=== PATIENT | female | born 1965 | race Caucasian/White ===

== ENCOUNTER 2019-08-30 10:24 | Outpatient (CLI) | payer BC, SELFPAY ==
--- NOTE | ~2019-08-30 | US_ITS ---
EXAMINATION:US venous doppler LE RT INDICATION:Right lower extremity pain TECHNIQUE: Multiple grayscale, color flow and Doppler images of the right lower extremity deep venous systems were obtained and reviewed. COMPARISON:No prior studies for comparison. FINDINGS: The common femoral, superficial femoral and popliteal veins demonstrate normal respiratory variation, augmentation and compressibility. Color flow is also seen within the posterior tibial, pe roneal, greater saphenous and profunda veins. IMPRESSION: 1: No lower extremity deep venous thrombosis. Reviewed, dictated and finalized at location B. 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
== END 2019-08-30 10:25 | disposition home or self-care (01) ==
PROVIDERS: PCP Internal Medicine; Visit Provider Physician Assistant
DX: M79.661 Pain in right lower leg (principal)
CPT/HCPCS: 93971

== ENCOUNTER 2021-05-27 10:21 | Outpatient (CLI) | payer BC, SELFPAY ==
--- NOTE | 2021-05-27 11:00 | NEURO_ITS ---
Impression: # Complains of numbness of feet. # Poor left peroneal responses. # Distal neuropathy. # Needle/EMG exam neurogenic in bilateral EDB, left more than right. Nerve Conduction Studies Anti Sensory Summary Table Stim Site NR Peak (ms) P-T Amp (?V) Site1 Site2 Delta-P (ms) Dist (cm) Masood (m/s) Left Sup Fibular Anti Sensory (Ant Lat Mall) 14 cm 3.7 22.9 14 cm Ant Lat Mall 3.7 16.0 43 Right Sup Fibular Anti Sensory (Ant Lat Mall) 14 cm 3.6 10.1 14 cm Ant Lat Mall 3.6 16.0 44 Left Sural Anti Sensory (Lat Mall) Calf 3.8 3.7 Calf Lat Mall 3.8 16.0 42 Right Sural Anti Sensory (Lat Mall) Calf 3.9 7.3 Calf Lat Mall 3.9 16.0 41 Motor Summary Table Stim Site NR Onset (ms) O-P Amp (mV) Site1 Site2 Delta-0 (ms) Dist (cm) Masood (m/s) Left Peroneal Motor (Vastus Med) NO RESPONSE Ankle NR Popit Ankle 0.0 Popit NR Right Peroneal Motor (Vastus Med) Ankle 5.7 0.6 Popit Ankle 7.4 38.0 51 Popit 13.1 0.7 Left Tibial Motor (Abd Nunez Brev) Ankle 5.1 7.6 Knee Ankle 9.8 42.0 43 Knee 14.9 4.1 Right Tibial Motor (Abd Nunez Brev) Ankle 5.1 4.7 Knee Ankle 9.0 42.0 47 Knee 14.1 1.3 F Wave Studies NR F-Lat (ms) L-R F-Lat (ms) Left Peroneal (Mrkrs) (EDB) 54.04 1.17 Right Peroneal (Mrkrs) (EDB) 52.87 1.17 Left Tibial (Mrkrs) (Abd Hallucis) 54.97 0.39 Right Tibial (Mrkrs) (Abd Hallucis) 54.58 0.39 EMG Side Muscle Nerve Root Ins Act Fibs Amp Dur Recrt Comment Right AntTibialis Dp Br Fibular L4-5 Nml Nml Nml Nml Nml Right Gastroc Tibial S1-2 Nml Nml Nml Nml Nml Right Fibularis Long Sup Br Fibular L5-S1 Nml Nml Nml Nml Nml Right Flex Dig Long Tibial L5-S2 Nml Nml Nml Nml Nml Right Ext Dig Brev Dp Br Fibular L5, S1 Nml Nml Incr >12ms Reduced Left AntTibialis Dp Br Fibular L4-5 Nml Nml Nml Nml Nml Left Gastroc Tibial S1-2 Nml Nml Nml Nml Nml Left Fibularis Long Sup Br Fibular L5-S1 Nml Nml Nml Nml Nml Left Flex Dig Long Tibial L5-S2 Nml Nml Nml Nml Nml Left Ext Dig Brev Dp Br Fibular L5, S1 Nml Nml Incr >12ms Reduced MTDD
== END 2021-05-27 10:22 | disposition home or self-care (01) ==
LOC: ANHNEURO 10:27
PROVIDERS: PCP Physician Assistant; Visit Provider Physician Assistant
DX: G62.9 Polyneuropathy, unspecified (principal)
CPT/HCPCS: 95886; 95910

== ENCOUNTER 2022-03-04 07:59 | Outpatient (CLI) | payer BC, SELFPAY ==
--- NOTE | ~2022-03-04 | NM_ITS ---
EXAMINATION: NM carolyn stress w perfusion DATE: 03/04/2022 10:57 INDICATION: Dyspnea on exertion. TECHNIQUE: Rest images were obtained following intravenous administration of 8.7 mCi Tc99m tetrofosmi n (Myoview). The patient was infused intravenously with Lexiscan (regadenoson). Then, 28.2 mCi Tc99m tetrofosmin (Myoview) was administered intravenously, and stress images were obtained. Data was recon structed into short axis and horizontal and vertical long axis SPECT images. Gated SPECT images were also obtained. COMPARISON: None. FINDINGS: There is no definite reversible or fixed perfusion abnormality to suggest ischemia or infar ction. There is no segmental wall motion abnormality. Left ventricular ejection fraction measures > 70%. IMPRESSION: 1. No definite ischemia or infarct. 2. Normal left ventricular ejection fraction measuring >70%. Reviewed, dictated and finalized at location A.
--- NOTE | 2022-03-04 08:20 | EST_ITS ---
Patient Info Name: Brennen Quiñonez Age: 57 years : 1965 Gender: Female Ht: 67 in Wt: 172 lbs BSA: 1.94 m2 Exam Date: 03/04/2022 9:48 AM Exam Location: [facility] Stress Patient Status: Outpatient Admit Date: 03/04/2022 Staff Ordering Physician: Angel Newman PA-C Attending Provider: Angel Newman PA-C Exercise Technologist: Linda Thompson RDCS Exercise Physician: Noah Armijo DO Exam Type: CA stress carolyn w NM Study Info Indications R06.09 - Other forms of dyspnea A regadenoson stress test was performed. Summary 1. 1. Negative lexiscan stress test for ischemic ST changes by ECG criteria. 2. 2. Stable hemodynamics throughout the test. 3. 3. Nuclear scan to follow and will be reported separately. Please correlate with it. 4. 4. Patient informed of the above results. Protocol: Lexiscan Stress ECG Details Stage: REST Duration (min): 0 min : 49 sec HR (bpm): 65 SBP (mmHg): 117 DBP (mmHg): 73 Stage: REST Duration (min): 8 min : 56 sec HR (bpm): 62 SBP (mmHg): 117 DBP (mmHg): 73 Stage: STAGE 1 Duration (min): 1 min : 0 sec HR (bpm): 97 SBP (mmHg): 141 DBP (mmHg): 82 Stage: RECOVERY Duration (min): 1 min : 0 sec HR (bpm): 107 SBP (mmHg): 144 DBP (mmHg): 75 Stage: RECOVERY Duration (min): 2 min : 0 sec HR (bpm): 105 SBP (mmHg): 144 DBP (mmHg): 75 Stage: RECOVERY Duration (min): 3 min : 0 sec HR (bpm): 96 SBP (mmHg): 141 DBP (mmHg): 77 Stage: RECOVERY Duration (min): 4 min : 0 sec HR (bpm): 92 SBP (mmHg): 141 DBP (mmHg): 77 Stage: RECOVERY Duration (min): 5 min : 0 sec HR (bpm): 85 SBP (mmHg): 143 DBP (mmHg): 79 Stage: RECOVERY Duration (min): 5 min : 11 sec HR (bpm): 87 SBP (mmHg): 143 DBP (mmHg): 79 Rest HR: 62 bpm Peak HR: 108 bpm Rest Sys BP: 117 mmHg Peak Sys BP: 144 mmHg Max Pred HR: 164 bpm % Max Pred HR: 66 % Target HR: 139 bpm Max RPP: 15,552 bpm*mmHg Termination Reason: Completed protocol Cardiac Symptoms: SOB, Headache, stomach discomfort Total Time: 1 min : 0 sec Rest Ruiz BP: 73 mmHg Peak Ruiz BP: 75 mmHg Total Dose: 0.4 mg Resting ECG Sinus rhythm, cannot r/o septal infarct, age indeterminate. Stress ECG No ST changes. Arrhythmias None. Report Signatures
== END 2022-03-04 08:00 | disposition home or self-care (01) ==
PROVIDERS: PCP Physician Assistant; Visit Provider Physician Assistant
DX: R06.02 Shortness of breath (principal)
CPT/HCPCS: 78452; 93017; A9502; J2785

== ENCOUNTER → 2022-08-03 15:47 | Outpatient (CLI) | payer BC, SELFPAY ==
--- NOTE | ~2022-08-03 | DEXA_ITS ---
Bone Density Report Name: GLORY CASTRO Age: 57 Sex: Female Ethnicity: White Date of : 1965 Indication: postmenopausal; screening for osteoporosis; prior fracture; Referring Provider: Angel Newman Study: Bone densitometry was performed. Exam Date: August 03, 2022 Accession number: [id number] Bone Density: Region BMD T-score Z-score Classification AP Spine (L1-L4) 1.099 0.5 1.6 Normal Femoral Neck (Left) 0.692 -1.4 -0.3 Osteopenia Total Hip (Left) 0.921 -0.2 0.6 Normal Femoral Neck (Right) 0.665 -1.7 -0.5 Osteopenia Total Hip (Right) 0.901 -0.3 0.4 Normal Total Hip Mean 0.911 -0.3 0.5 Normal World Health Organization criteria for BMD impression classify patients as: Normal (T-score at or above -1.0), Osteopenia (T-score between -1.0 and -2.5), or Osteoporosis (T-score at or below -2.5). 10-year Fracture Risk(1): Major Osteoporotic Fracture 13% Hip Fracture 1.2% Reported Risk Factors: [place] (), Neck BMD=0.665, BMI=28.8, previous fracture (1) FRAX(R) Version 3.08. Fracture probability calculated for an untreated patient. Fracture probability may be lower if the patient has received treatment. Clinical Information Provided by Patient: Has had a low trauma fracture Has used the following medications: Calcium Patient maximum height was 67.5 Menopause Age: 44 No regular weight bearing exercise Drinks caffeinated beverages Onset of menses at age 13 Number of children 2 Impression: The patient has low bone mass, based on the Right Femoral Neck T-score. The patient has an estimated ten-year risk of hip fracture of 1.2% and an estimated ten-year risk of major fracture of 13%, based on the WHO FRAX algorithm. The patient has risk factors, including: previous fracture. Discussion: BONE DENSITY IS LOW AT ONE OR MORE SKELETAL SITES. This patient's lowest T-score is low at one or more skeletal sites. It meets the World Health Organization's (WHO) criteria for ?low bone mass? (T-score between -1.0 and -2.5). The patient's 10-year risk of fracture as calculated by FRAX is less than the threshold where pharmacological therapy is recommended by the National Osteoporosis Foundation (NOF). However, all treatment decisions require clinical judgment and consideration of individual patient factors, including patient preferences, comorbidities, previous drug use, risk factors not captured in the FRAX model (e.g., frailty, falls, vitamin D deficiency, increased bone turnover, interval significant decline in bone density) and possible under or overestimation of fracture risk by FRAX. The patient should follow a healthful lifestyle (good nutrition with adequate calcium and vitamin D, and appropriate weight-bearing exercise). Follow-Up: Consider repeating this study in 2 to 3 years to re
== END ==
PROVIDERS: PCP Internal Medicine; Visit Provider Physician Assistant
DX: Z78.0 Asymptomatic menopausal state (principal); M85.852 Other specified disorders of bone density and structure, left thigh; M85.851 Other specified disorders of bone density and structure, right thigh
CPT/HCPCS: 77080

== ENCOUNTER 2024-05-22 12:44 | Outpatient (CLI) | payer BC, SELFPAY ==
--- NOTE | ~2024-05-22 | MR_ITS ---
EXAMINATION: MR hip RT wo con DATE: 05/22/2024 13:40 INDICATION: Right hip pain TECHNIQUE: Magnetic resonance imaging (MRI) of the right hip was performed without intravenous contr ast. Sequences included full-field axial PD-weighted FS FSE and T1-weighted FSE, coronal of the pelvi s with PD-weighted FS FSE, T2-weighted FSE and T1-weighted FSE, small field of view of the right hip with axial PD-weighted FS FSE, sagittal PD-weighted FS FSE, coronal PD-weighted FS FSE and coronal T2 weighted FSE. Additional radial T1-weighted FGR oriented orthogonal to the acetabular rim were obt ained for evaluation of the labrum. COMPARISON: Right hip radiographs dated 04/29/2024 FINDINGS: Bones/labrum/cartilage: Alignment is normal. No fracture, avascular necrosis or pathologic marrow replacing process. There i s a tear extending for 1.3 cm AP along the the 1:00-12:00 position of the anterosuperior right acetab ular labrum. Minimal osteoarthritis at the right hip. Fluid: Symmetric physiologic amount of fluid within both hip joints. Soft tissues: Normal and symmetric muscle bulk and signal in the pelvis and visualized proximal thighs. The iliopso as, gluteal and proximal hamstring tendons are normal. Bilateral 2.8 cm ovarian cysts with multiple a dditional subcentimeter cysts at both ovaries which can be seen in the setting of polycystic ovarian disease. There are also multiple nabothian cysts versus tunnel cluster at the cervix. Limited evaluat ion of visceral organs of the pelvis is otherwise unremarkable. No pathologically enlarged pelvic/in guinal lymphadenopathy. IMPRESSION: 1. Minimal right hip osteoarthritis with tear at the anterosuperior right acetabular labrum. 2. Numerous small bilateral ovarian cysts which could be seen in the setting of polycystic ovarian di sease. Reviewed, dictated and finalized at location A. NURSE IMPRESSION: 1. Minimal right hip osteoarthritis with tear at the anterosuperior right aceta bular labrum. 2. Numerous small bilateral ovarian cysts which could be seen in the setting of polycystic ovarian disease.
== END 2024-05-22 12:45 | disposition home or self-care (01) ==
LOC: MICIMG 12:47
PROVIDERS: PCP Physician Assistant; Visit Provider Orthopaedic Surgery
DX: M16.11 Unilateral primary osteoarthritis, right hip (principal); S43.431A Superior glenoid labrum lesion of right shoulder, initial encounter; X58.XXXA Exposure to other specified factors, initial encounter; N83.292 Other ovarian cyst, left side; N83.291 Other ovarian cyst, right side
CPT/HCPCS: 73721

== ENCOUNTER 2024-12-12 14:14 | Outpatient (CLI) | payer BC, SELFPAY ==
--- OUTSIDE RECORDS SUMMARY | 2024-12-12 14:29 | XMS_ITS | Clinical Summary ---
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 This disclosure is being madepursuant to the Care Everywhere program and may not contain all information available regarding this patient. Last updated 18.[facility] [employer] Allergies Active Allergy Reactions Criticality Noted Date Comments Keflex Other Low 04/20/2010 Yeast infection. Doesn't want ever take., Yeast infection. Doesn't want ever take., Yeast infection. Doesn't want ever take. Morphine Sulfate Nausea and/or Vomiting Low 010 Penicillins Skin Reactions,Swelling Medium 04/20/2010 Other reaction(s): Hives Swollen hives. Swollen hives., Swollen hives., Swollen hives. Medications * Be aware that medications may not be up to date on this document. Alwaysverify current medications with the patient. zolpidem (AMBIEN) 10 MG tablet 0 09/23/19 18 Active valACYclovir (VALTREX) 1 GM tablet 0 08/31/19 18 Active traMADol (ULTRAM) 50 MG tablet 0 08/04/19 18 Active spironolactone (ALDACTONE) 50 MG tablet 1 08/04/19 18 Active pantoprazole EC (PROTONIX) 40 MG tablet 3 09/13/19 18 Active omeprazole (PRILOSEC) 20 MG capsule 08/10/19 16 Active jannz-3-yevr ethyl esters (LOVAZA) 1 G capsule Take 1 tablet by mouth once daily 08/15/19 15 Active erythromycin base (E-MYCIN) 500 MG tablet 07/21/19 16 Active cyclobenzaprine (FLEXERIL) 10 MG tablet 0 08/31/19 18 Active cyanocobalamin (VITAMIN B-12) 100 MCG tablet Take 100 mcg by mouth once daily Active Calcium Carbonate (CALCIUM 600 PO) Take 1,200 mg by mouth Active ALPRAZolam (XANAX) 0.5 MG tablet 0.5 mg as needed 06/05/20 14 Active fenofibrate (LOFIBRA) 160 MG tabletIndications: Mixed hyperlipidemia Take 1 tablet by mouth once daily 90 tablet 4 12/02/19 20 Active rosuvastatin (CRESTOR) 5 MG tablet Take 5 mg by mouth once daily 02/24/20 20 Active OZEMPIC, 0.25 OR 0.5 MG/DOSE, 2 MG/1.5ML pen 11/26/19 20 Active SYNTHROID 175 MCG tabletIndications: Hypothyroidism Take 1 tablet by mouth daily before breakfast Reasons: Underactive Thyroid 90 tablet 3 05/11/20 20 Active metFORMIN (GLUCOPHAGE) 1000 MG tablet TAKE 1 TABLET BY MOUTH TWICE A DAY WITH MEALS 180 tablet 3 02/02/20 21 Active Active Problems Problem Noted Date Diagnosed Date Benign paroxysmal vertigo of right ear 7 BPV (benign positional vertigo), right 7 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 Defuse. Immunizations Immunization Administration Dates Next Due INFLUENZA VACCINE, TRIV. (AF LURIA, FLUZONE TRIVALENT; 6MO+) (IIV3) 03/26/2013 Family History Medical History Relation Name Comments Diabetes Brother CAD (Coronary Artery Disease) Father Diabetes Father Heart Disease Father High Cholesterol Father Cancer Maternal Grandfather Hypertension Maternal Grandfather Cancer Maternal Grandmother Hypertension Maternal Grandmother Diabetes Mother Thyroid Disease Mother Cancer Paternal Aunt Diabetes Paternal Uncle 1 CAD (Coronary Artery Disease) Paternal Uncle 2 Heart Disease Paternal Uncle 3 Cancer Sister breast cancer Asthma Neg Hx CVA Neg Hx Kidney Disease Neg Hx Migraine Neg Hx Osteoporosis Neg Hx Seizures Neg Hx Relation Name Status Comments Brother Father Maternal Grandfather Maternal Grandmother Mother Paternal Aunt Paternal Uncle 1 Paternal Uncle 2 Paternal Uncle 3 Sister Social History Tobacco Use Types Packs/Day Years Used Date Smoking Tobacco: Former Cigarettes Q uit: 06/26/2000 Smokeless Tobacco: Never Alcohol Use Standard Drinks/Week Comments Yes 0 (1 standard drink = 0.6 oz pur e alcohol) Comments No Sex and Gender Information Value Date Recorded Sex Assigned at Not on file 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 Gender Identity Not on file Sexual Orientation Not on file Last Filed Vital Signs Vital Sign Reading Time Taken Comments Blood Pressure 134/86 12/02/2019 11:04 AM CDT Pulse 76 12/02/2019 11:04 AM CDT Temperature 36.8 C (98.3 F) 12/02/2019 11:04 AM CDT Respiratory Rate 17 12/02/2019 11:0 4 AM CDT Oxygen Saturation 96% 12/02/2019 11: 04 AM CDT Inhaled Oxygen Concentration - - Weight 80.7 kg (177 lb 14.4 oz) 020 11:04 AM CDT Height 171.5 cm (5' 7.5) 12/02/2019 11 :04 AM CDT Body Mass Index 27.45 12/02/2019 11:04 AM CDT Plan of Treatment Health Maintenance Due Date Last Done Comments COLOGUARD (AGES 45-75) - COL ON CA SCREENING 1965 COLON MONITORING 1965 COLONOSCOPY - COLON CA SCREENING 1966 CT COLONOGRAPHY - COLON CA SCREENING 1965 Colorectal Cancer Screening 1965 FIT - COLON CA SCREENING 1965 FLEX SIG - COLON CA SCREENING 1965 MAMMOGRAM 1965 HIV SCREENING 1981 HEPATITIS C SCREENING 01/11/1984 DTAP/TDAP/TD VACCINES (1 - Tdap) 1985 HEPATITIS B VACCINE (1 of 3 - 19+ 3-dose series) 1985 PAP SMEAR 1987 PNEUMOCOCCAL VACCINE 50+ (1 of 1 - PCV) 01/16/2016 ZOSTER VACCINE (1 of 2) 01/16/2016 COVID-19 VACCINE (1 - 2023-2 5 season) 2024 DEPRESSION SCREENING 06/26/2024 INFLUENZA VACCINE (Season Ended) 2025 03/26/20 13 HIB VACCINE Aged Out No longer eligi ble based on patient's age to complete this topic HPV VACCINE Aged Out No longer eligi ble based on patient's age to complete this topic MENINGOCOCCAL (Group B) VACC INE SHARED DECISION-MAKING Aged Out No longer eligibl e based on patient's age to complete this topic MENINGOCOCCAL GROUPS A/C/Y/W VACCINE Aged Out No longer eligible b ased on patient's age to complete this topic Insurance Care Teams 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
--- OUTSIDE RECORDS SUMMARY | 2024-12-12 14:29 | XMS_ITS | Encounter Summary ---
Author Organization [facility] Address 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 Role Phone Unavailable Primary Care Provider Unavailabl e Encounter Details Date Type Department Care Team (Late st Contact Info) Description 12/10/2024 External Device Data [facility] ABSTRACTION Provider, Abstract NO ADDRESS ON FILE Social History Tobacco Use Types Packs/Day Years Used Date Smoking Tobacco: Never Assessed Comments Unknown Sex and Gender Information Value Date Recorded Sex Assigned at Not on file Legal Sex Female 12:14 PM CDT Gender Identity Not on file Sexual Orientation Not on file documented as of this encounter Plan of Treatment Not on file documented as of this encounter Visit Diagnoses Not on filedocumented in this encounter
--- OUTSIDE RECORDS SUMMARY | 2024-12-12 14:29 | XMS_ITS | Clinical Summary ---
Author Organization [facility] al Address [address] [place] [address] Care Team Providers Care Certified Nursing Assistant Instructor Name Role Phone hTais Patten MD Unavailable [phone] Savage Salinas DO Primary Care Provider [phone] Allergies Active Allergy Reactions Criticality Noted Date Comments Cephalexin Other (See comments) Low 04/20/2010 Yeast infection. Doesn't want ever take. Morphine Nausea only,Vomiting Low Morphine Sulfate Nausea And Vomiting Low 04/20/2010 Penicillins Swelling,Rash Medium 04/20/2010 Medications LORazepam (ATIVAN) 0.5 mg tablet Take 0.5 mg by mouth every 8 (eight) hours as needed for anxiety 0 Active traMADoL (ULTRAM) 50 mg tablet Take 50 mg by mouth every 6 (six) hours as needed for pain 0 Active zolpidem (AMBIEN) 10 mg tablet Take 10 mg by mouth nightly as needed for sleep 0 Active omeprazole (PriLOSEC) 10 mg capsuleIndication s:Treatment of Non-Bleeding Gastric Disorder Take 10 mg by mouth daily before breakfast Active valACYclovir (VALTREX) 1 gram tabletIndications :Skin/Soft Tissue Infection Take 1,000 mg by mouth as needed 0 Active spironolactone (ALDACTONE) 100 mg tablet 1 Active Synthroid 125 mcg tablet Take 1 tablet (125 mcg total) by mouth daily 30 tablet 11 2 Active pravastatin (PRAVACHOL) 20 mg tablet Take 1 tablet (20 mg total) by mouth daily 3 Active pravastatin (PRAVACHOL) 40 mg tablet Take 1 tablet (40 mg total) by mouth daily 4 Active Ozempic 2 mg/dose (8 mg/3 mL) pen injector injection INJECT 2 MG UNDER THE SKIN ONCE WEEKLY 4 Active metFORMIN XR (GLUCOPHAGE XR) 500 mg 24 hr tablet Take 1 tablet (500 mg total) by mouth daily 4 Active estrogens, conjugated, (Premarin) vaginal creamIndications: dyspareunia due to menopausal vulvovaginal atrophy Insert 0.5 grams vaginally twice a week. 30 g 1 5 Active Active Problems Problem Noted Date Diagnosed Date Vaginal dryness, menopausal 08/30/2024 Type 2 diabetes mellitus wit hout complication, without long-term current use of insulin 07/06/2021 Assessment & Plan (07/06/2021 10:50 AM COMMUNITY RELATIONS LIAISON): Control : no recent labs available A1c was 6.6% on 12/03/19 Kidney: normal GFR 72 on 12/10/20 Neuropathy : responding to Gabapentin Eye : needs exam Plan: Continue diet plan Continue 2000 mg of Metformin /day Check labs in 4 weeks. Ophthalmology exam on regular basis. Arthritis of carpometacarpal (CMC) joint of both thumbs 03/27/2020 Overview (03/27/2020): Added automatically from request for surgery [id number] Subcutaneous mass of left thumb 03/27/2020 Overview (03/27/2020): Added automatically from request for surgery [id number] Neuroma of foot 05/11/2017 BPV (benign positional vertigo), right 7 At risk for breast cancer 09/08/2016 Assessment & Plan (09/16/2024 6:55 AM CDT): Sister had breast cancer at the age of 36, and two paternal aunts had breast cancer in their 30's. Patient plans to continue routine follow up with the breast center at [facility]. Encouraged to continue yearly mammography and breast MRI as recommended. 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 She started new dose of 137 mcg /day in last 10 days. Plan: Continue same dose of Levothyroxine The proper way of taking Levothyroxine reviewed with patient. Check TSH in 4 weeks I will adjust the dose based on lab results. Anxiety 04/08/2013 Overview (09/29/2016): Anxiety Insomnia 04/08/2013 Overview (10/01/2016): Insomnia Asymmetrical sensorineural hearing loss 08/10/19 13 Subjective tinnitus 08/10/2012 Immunizations Immunization Administration Dates Next Due Influenza, Trivalent, IM (MDV) 03/26/2013 Pfizer SARS-CoV-2 Monovalent Vaccination (12+ Yrs) ORELLANA-READY TO USE 01/06/2022 Surgical History Surgery Date Site/Laterality Comments TEMPOROMANDIBULAR JOINT SURGERY 06/26/2014 - 06/25/2015 Bilateral SECTION 06/26/1984 - 06/25/1985 DEBRIDEMENT TENNIS ELBOW 06/26/1994 - 06/25/1995 Right ORIF ANKLE FRACTURE 06/26/2015 - 06/25/2016 Left TUBAL LIGATION 06/26/2004 - 06/25/2005 OVARIAN CYSTECTOMY 06/26/2004 - 06/25/2005 COMBINED AUGMENTATION MAMMAP LASTY AND ABDOMINOPLASTY 06/26/2009 - 06/25/2010 Bilateral BUNIONECTOMY 06/26/1999 - 06/25/2000 CARPAL TUNNEL RELEASE 06/26/2014 - 06/25/2015 Bilateral ORTHOPEDIC SURGERY 06/26/2017 - 06/25/2018 Right orthoplasty Medical History Medical History Date Comments PONV (postoperative nausea and vomiting) nauseated for hours following most surgeries ; patch naive Hyperlipidemia Type 2 diabetes mellitus wit hout complication, without long-term current use of insulin (HCC) 07/06/2021 Family History Medical History Relation Name Comments Heart attack Father fatal Heart disease Father Family history of cardiac disorder - (Added by TW Conv) Diabetes Mother Family history of diabetes mellitus - (Added by TW Conv) Cancer Other Family history of malignant neoplasm - Relation: Grandparent (Added by TW Conv) Cancer Sister 1 Family history of malignant neoplasm - (Added by TW Conv) Breast cancer Sister 2 Adenocarcinoma of breast - (Added by TW Conv) Malig Hyperthermia Neg Hx Pseudochol deficiency Neg Hx Stroke Neg Hx Relation Name Status Comments Father Mother Other Sister 1 Sister 2 Social History Tobacco Use Types Packs/Day Years Used Date Smoking Tobacco: Former Cigarettes Q uit: 2000 Smokeless Tobacco: Never Tobacco Cessation:Counseling Given: Not Answered Alcohol Use Standard Drinks/Week Comments Not Currently 2 (1 standard drink = 0.6 oz pur e alcohol) PHQ-2 Answer Date Recorded PHQ-2 Total Score (If total score is 3 or more points, staff should administer the PHQ-9) 0 08/30/2024 Comments No Sex and Gender Information Value Date Recorded Sex Assigned at Not on file Legal Sex Female 9:48 PM COMMUNITY RELATIONS LIAISON Gender Identity Not on file Sexual Orientation Straight 10/13/2019 9: 21 PM CDT Obstetrics History Para Term AB IAB SAB Ectopic Multiple Livin g Live Births 3 2 2 Date Outcome GA Total Labor Labor/2nd/3rd Weight Sex Type Anes PTL Rosa Isela A1 A5 Name Clin Para Para Last Filed Vital Signs Vital Sign Reading Time Taken Comments Blood Pressure 130/80 08/30/2024 3:38 PM [facility]ITY [facility]ATIONS LIAISON Pulse 75 04/09/2020 1:30 PM CDT Temperature 36.2 C (97.2 F) 04/09/2020 12:20 PM CDT Respiratory Rate 14 04/09/2020 1:30 PM CDT Oxygen Saturation 96% 04/09/2020 1:30 PM CDT Inhaled Oxygen Concentration - - Weight 74.5 kg (164 lb 4.8 oz) 08/30/2024 3:38 P M COMM[facility]ITY RELATIONS LIAISON Height 170.2 cm (5' 7) 08/29/2023 3:06 PM COMMUNITY RELATIONS LIAISON Body Mass Index 25.73 08/29/2023 3:06 PM COMMUNITY RELATIONS LIAISON Plan of Treatment Health Maintenance Due Date Last Done Comments Colon Cancer Screening-Colonoscopy 1966 Hepatitis C Screening 1966 Dilated Eye Exam 1966 DTaP/Tdap/Td Vaccine (1 - Tdap) 1977 Hepatitis B Screening 01/16/1984 Pneumococcal vaccine <65 (1 of 2 - PCV) 1985 Zoster Vaccine (2 of 2) 07/06/2021 05/11/2021 Foot Exam 07/06/2022 07/06/2021 Hemoglobin A1C 08/14/2022 02/11/2022, 03, 12/03/2019, Additional history exists Albumin Creatinine Ratio, Urine 09/02/2022 2 Lipid Panel 02/11/2023 02/11/2022, 09/02/2021 eGFR 02/11/2023 02/11/2022, 09/02/2021 Covid-19 Vaccine (3 - 2023-2 5 season) 2024 01/06/2022, 04/07/2021 Influenza Vaccine (Season Ended) 2025 03/26/20 13 Breast Cancer Screening-Mammogram 06/10/2025 06/10/2024, 04/10/2023, 01/06/2022, Additional history exists Cervical Cancer Screening 08/30/2025 08/30/2024, 10/2023 Depression Screening 08/30/2025 08/30/2024, 08/29/19 24 Regular Well Visit/Exam 18-64 08/30/2025 08/30/2024, 08/29/2023 Medical Devices Implanted Type Area Rubber Turner Device Identifier Shelf Expiration Date Model / Serial / Lot Mini Quickanchor(Tm) Plus (#2/0 Suture) Implanted:Qty: 1 on 04/09/2020 by Prudence Barnes MD PhD at [facility] Left: Thumb Depuy Mitek 05/25/2024 / / [id number] Description:[id number] Procedures Procedure Name Priority Date/Time Associated Diagnosis Comments PAP, REFLEX HPV Routine 08/30/2024 4:09 PM COMM[facility]ITY RELATIONS LIAISON Well woman exam SCREENING MAMMOGRAM BILATERAL W NACHO W IMPLANTS Schedule Routine, Read Routine (OP Routine) 06/10/2024 12:41 PM COMMUNITY RELATIONS LIAISON Screening mammogram, encounter for EGFR Routine 02/11/2022 9:36 AM CDT HEMOGLOBIN A1C Routine 02/11/2022 9:36 AM CDT LIPID PANEL Routine 02/11/2022 9:36 AM CDT ALBUMIN CREATININE RATIO, URINE Routine 09/02/2021 4:26 PM COMMUNITY RELATIONS LIAISON Type 2 diabetes mellitus without complication, without long-term current use of insulin (HCC) from Last 3 Months or Most Recently Relevant to Health Maintenance Results * Pap, reflex HPV (08/30/2024 4:09 PM COMMUNITY RELATIONS LIAISON) CLINICAL INFORMATION: [facility] Comment:None given LMP [facility] Comment:A Previous Pap [facility] Comment:NONE GIVEN Prev. Bx [facility] Comment:NONE GIVEN SOURCE: [facility] Comment:Cervix, Endocervix Pap, specimen adequacy [facility] Comment:SATISFACTORY FOR VICTORIANO LUATION HPV interp [facility] Comment: Cytology Results: Negative for intraepithelial lesion or malignancy. Atrophic pattern; predominantly parabasal cells COMMENTS [facility] Comment: This case could not be evaluated with computer assisted technology. The slide was manually screened according to routine procedures. [employer] [facility] Comment: SXB, CT(ASCP) CT screening location: [facility], [address] [place] [address] [address], [place] [id number] Printing Assistant: CHRISTIAN CONNER MD, CLIA: [id number] Comment [facility] Comment: EXPLANATORY NOTE: The Pap is a screening test for cervical cancer. It is not a diagnostic test and is subject to false negative and false positive results. It is most reliable when a satisfactory sample, regularly obtained, is submitted with relevant clinical findings and history, and when the Pap result is evaluated along with historic and current clinical information. Thin prep 08/30/2024 4:09 PM COMMUNITY RELATIONS LIAISON 09/02/2024 5:01 AM CDT Prudence Duran NP LAB CYTOLOGY ORDERABLES Final Re sult [facility] [place] [address] [place] [phone] * Screening Mammogram Bilateral W Nacho W Implants (06/10/2024 12:41 PM COMMUNITY RELATIONS LIAISON) Anatomical Region Laterality Modality Breast Bilateral Mammography Narrative 06/11/2024 12:05 PM COMMUNITY RELATIONS LIAISON Mammogram Technique: Bilateral Digital Breast Tomosynthesis, Bilateral C-view 2D Screening mammogram. Views obtained: bilateral craniocaudal; bilateral craniocaudal implant displaced; bilateral mediolateral oblique; and bilateral mediolateral oblique implant displaced. Computer Aided Detection was performed. Mammogram Findings: The present examination has been compared to prior imaging studies performed at [facility] on 12/29/2020, 01/06/2022 and 04/10/2023. There are scattered areas of fibroglandular density. There are bilateral sub-glandular silicone gel implants. There is no suspicious abnormality in either breast. There are no significant changes from the prior study. Impression: There is no mammographic evidence of malignancy. Annual screening mammography is recommended. OVERALL FINAL ASSESSMENT: BI-RADS CATEGORY 1: Negative. Procedure Note Leslie Savage MD - 06/11/2024 Mammogram Technique: Bilateral Digital Breast Tomosynthesis, Bilateral C-view 2D Screening mammogram. Views obtained: bilateral craniocaudal; bilateralcraniocaudal implant displaced; bilateral mediolateral oblique; and bilateral mediolateral oblique implant displaced. Computer Aided Detection was performed. Mammogram Findings: The present examination has been compared to prior imaging studies performed at [facility] on 12/29/2020, 01/06/2022 and 04/10/2023. There are scattered areas of fibroglandular density. There are bilateral sub-glandular silicone gel implants. There is no suspicious abnormality in either breast. There are no significant changes from the prior study. Impression: There is no mammographic evidence of malignancy. Annual screening mammography is recommended. OVERALL FINAL ASSESSMENT: BI-RADS CATEGORY 1: Negative. us Self Screening Mammogram IMG MAMMO PROCEDURES Fi nal Result * eGFR (02/11/2022 9:36 AM CDT) eGFR 103 mL/min/1. 73 m2 [facility] ([place]) Comment: Interpretive Data Reference Interval Normal >/= 90 mL/min/1.73m2 Mildly decreased* 60 - 89 mL/min/1.73m2 Mildly to moderately decreased 45 - 59 mL/min/1.73m2 Moderately to severely decreased 30 - 44 mL/min/1.73m2 Severely decreased 15 - 29 mL/min/1.73m2 Kidney Failure < 15 mL/min/1.73m2 *Relative to young adult level Estimated glomerular filtration rate is determined by the 2020 CKD-EPI equation recommended by the National Kidney Foundation (A Unifying Approach to GFR Estimation: Recommendations of the NKF-ASK Task Force on Reassessing the Inclusion of Race in Diagnosing Kidney Disease, JASN 202). The CKD-EPI equation should not be used for patients with unstable renal function and has not been validated in children and those over 70. Current interpretive data was last reviewed 2021. Blood 02/11/2022 9:36 AM CDT 02/11/2022 10:38 AM CDT Angel RUBY LAB BLOOD ORDERABLES Fi nal Result RUPALI FRANCISCO ([place]) 1 [facility] Department [place] [address] * (ABNORMAL) Hemoglobin A1c (02/11/2022 9:36 AM CDT) Hgb A1C 6.6(H) 4.0 - 5.6 % [facility] ([place]) Estimated Average Glucose 143 mg/dL [facility] ([place]) Comment: The ADA recommends reporting an estimated Average Glucose (eAG) with all Hemoglobin A1c results using the equation derived from a study of 507 normal and diabetic adults. Minority populations were underrepresented and children were not included. (Diabetes Care 31:0231-0123, 2008). The eAG is not equivalent to a fasting glucose. Blood 02/11/2022 9:36 AM CDT 02/11/2022 10:38 AM CDT Angel RUBY LAB BLOOD ORDERABLES nal Result RUPALI FRANCISCO ([place]) 1 [facility] Department [place] [address] * (ABNORMAL) Lipid panel (02/11/2022 9:36 AM CDT) Cholesterol 177 30 - 199 mg/dL RUP[facility] FRANCISCO ([place]) Comment: Interpretive Data Ages < or = 19 years Acceptable: <170 mg/dL Borderline high: 170-199 mg/dL High: >or= 200 mg/dL Ages > or = 20 years Desirable: <200 mg/dL Borderline high: 200-239 mg/dL High: >or= 240 mg/dL Literature References: 1. Expert Panel on Integrated Guidelines for Cardiovascular Health and Risk Reduction in Children and Adolescents. Pediatrics 2011;128:S213 2. NCEP Expert Panel. Circulation 2004;110:227 Current Interpretive Data was last revised on 2018. Triglycerides 155(H) <=149 mg/dL [facility]UP[facility] FRANCISCO ([place]) Comment: Interpretive Data Ages < or = 9 years Acceptable: <75 mg/dL Borderline high: 75-99 mg/dL High: >or= 100 mg/dL Ages 10 to 20 years Acceptable: <90 mg/dL Borderline high: 90-129 mg/dL High: >or= 130 mg/dL Ages > or = 20 years Desirable: <150 mg/dL Borderline high: 150-199 mg/dL High: 200-499 mg/dL Very high: >or= 499 mg/dL Literature References: 1. Expert Panel on Integrated Guidelines for Cardiovascular Health and Risk Reduction in Children and Adolescents. Pediatrics 2011;128:S213 2. NCEP Expert Panel. Circulation 2004;110:227 Current Interpretive Data was last revised on 2018. HDL 49 >=40 mg/dL RUPALI FRANCISCO ([place]) Comment: Interpretive Data Ages < or = 19 years Acceptable: >45 mg/dL Borderline low: 40-45 mg/dL Low: <40 mg/dL Ages > or = 20 years Desirable: >or= 60 mg/dL Low: <40 mg/dL Literature References: 1. Expert Panel on Integrated Guidelines for Cardiovascular Health and Risk Reduction in Children and Adolescents. Pediatrics 2011;128:S213 2. NCEP Expert Panel. Circulation 2004;110:227 Current Interpretive Data was last revised on 2018. LDL, calculated 97 <=129 mg/dL RUPALI FRANCISCO ([place]) Comment: Interpretive Data Ages < or = 19 years Acceptable: <110 mg/dL Borderline high: 110-129 mg/dL High: >or= 130 mg/dL Ages > or = 20 years Optimal: <100 mg/dL Near optimal: 100-129 mg/dL Borderline high: 130-159 mg/dL High: >160 mg/dL Literature References: 1. Expert Panel on Integrated Guidelines for Cardiovascular Health and Risk Reduction in Children and Adolescents. Pediatrics 2011;128:S213 2. NCEP Expert Panel. Circulation 2004;110:227 Current Interpretive Data was last revised on 2018. Non-HDL Cholesterol 128 mg/dL RUP[facility] FRANCISCO ([place]) Comment: Interpretive Data Ages < or = 19 years Acceptable: <120 mg/dL Borderline high: 120-144 mg/dL High: >145 mg/dL Ages > or = 20 years When triglycerides are >200 mg/dL, Non-HDL cholesterol is a secondary target of therapy with treatment goals that are 30 mg/dL greater than the LDL cholesterol target. Literature References: 1. Expert Panel on Integrated Guidelines for Cardiovascular Health and Risk Reduction in Children and Adolescents. Pediatrics 2011;128:S213 2. NCEP Expert Panel. Circulation 2004;110:227 Current Interpretive Data was last revised on 2018. Chol/HDL ratio 4 JANINE Trinh FRANCISCO ([place]) Blood 02/11/2022 9:36 AM CDT 02/11/2022 10:38 AM CDT Angel RUBY LAB BLOOD ORDERABLES Fi nal Result Performing Organization Address [facility]/ZIP Co de Phone Number RUPALI FRANCISCO ([place]) 1 [facility] Department [place] [address] * Albumin Creatinine Ratio, Urine (09/02/2021 4:26 PM COMMUNITY RELATIONS LIAISON) Albumin Ur <12.0 mg/L [facility]ERNER [facility] ([place]) Comment: Interpretive Data No reference range established. Current interpretive data was last revised 2018. Testing performed by: [facility], [address] [place] [address]., [id number] Creatinine Ur 167.5 mg/dL [facility] ([place]) Comment: Interpretive Data No reference range established. Current interpretive data was last revised 2018. Testing performed by: [facility], [address] [place] [address]., [id number] Albumin Creatinine Ratio, Ur <7 1 - 29 mg/g [facility] ([place]) Comment:Testing performed by : [facility], [address] [place] [address]., [id number] Urine 09/02/2021 4:26 PM COMMUNITY RELATIONS LIAISON 09/03/2021 9:37 AM COMMUNITY RELATIONS LIAISON Patricia Eason MD LAB URINE ORDERABLES Final Res ult Performing Organization Address [facility]/ZIP Co de Phone Number [facility]UP[facility]I FRANCISCO ([place]) 1 [facility] [place] [place] [address] from Last 3 Months or Most Recently Relevant to Health Maintenance Insurance [facility] Care Teams Certified Nursing Assistant Instructor Relationship Specialty Start Date End Date Savage Salinas DO [address] [facility] [address] [place], [place] [id number] PCP - General Internal Medicine 10/22/24 Thais Patten MD [address] [address] 09/14/16
--- OUTSIDE RECORDS SUMMARY | 2024-12-12 14:29 | XMS_ITS | Clinical Summary ---
Author Organization [facility] [address] [place] [address] Address [address] [place] [address] Care Team Providers Care Director Of Volunteer Services Name Role Phone Unavailable Primary Care Provider Unavailabl e Encounters Date Type Department Care Team Description 12/10/2024 External Device Data [facility] Provider, Abstract 11/19/2024 External Device Data [facility] Provider, Abstract 11/13/2024 External Device Data [facility] Provider, Abstract 11/12/2024 External Device Data [facility] Provider, Abstract 10/29/2024 External Device Data [facility] Provider, Abstract 09/11/2024 External Device Data [facility] Provider, Abstract from Last 3 Months Social History Tobacco Use Types Packs/Day Years Used Date Smoking Tobacco: Never Assessed Comments Unknown Sex and Gender Information Value Date Recorded Sex Assigned at Not on file Legal Sex Female 12:14 PM CDT Gender Identity Not on file Sexual Orientation Not on file Plan of Treatment Health Maintenance Due Date Last Done Comments DTAP/TDAP/TD VACCINES (1 - Tdap) 1985 HEPATITIS B VACCINES (1 of 3 - 19+ 3-dose series) 12/25 HPV/Cotest (21-29) 1987 CERVICAL CANCER SCREENING 01/16/1996 HPV/Cotest (30-65) 01/16/1996 PAP SMEAR 01/16/1996 BREAST CANCER SCREENING 2006 COLORECTAL SCREENING 2011 Colorectal Cancer Screening 2011 FIT-DNA Q 3 years 2011 FIT/FOBT Q 1 year 2011 Flex Sig/CT Colonography Q 5 years 2011 ZOSTER VACCINE (1 of 2) 01/16/2016 INFLUENZA VACCINE (#1) 2024
--- OUTSIDE RECORDS SUMMARY | 2024-12-12 14:29 | XMS_ITS | Referral Summary ---
Author Organization [facility] al Address [address] [place] [address] Care Team Providers Care Senior Business Development Analyst Name Role Phone Thais Patten MD Unavailable [phone] Savage Salinas DO Primary Care Provider [phone] Allergies Active Allergy Reactions Criticality Noted Date [...] 07/06/2021 Assessment & Plan (07/06/2021 10:50 AM SURGICAL ASSIST): Control : no recent labs available A1c was 6.6% on 12/03/19 Kidney: normal GFR 72 on 12/10/20 Neuropathy : responding to Gabapentin Eye : needs exam Plan: Continue diet plan Continue 2000 mg of Metformin /day Check labs in 4 weeks. Ophthalmology exam on regular basis. Arthritis of carpometacarpal (CMC) joint of both thumbs 03/27/2020 Overview (03/27/2020): Added automatically from request for surgery [id number] Subcutaneous mass of left thumb 03/27/2020 Overview (03/27/2020): Added automatically from request for surgery [id number] Neuroma of foot 05/11/2017 BPV (benign positional vertigo), right 7 At risk for breast cancer 09/08/2016 Assessment & Plan (09/16/2024 6:55 AM CDT): Sister had breast cancer at the age of 36, and two paternal aunts had breast cancer in their 30's. Patient plans to continue routine follow up with the breast center at [facility]. Encouraged to continue yearly mammography and breast MRI as recommended. 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 Mixed hyperlipidemia 05/01/2013 Prediabetes 05/01/2013 Hypothyroidism 04/08/2013 Overview (09/29/2016): Hypothyroid Assessment & Plan (07/06/2021 10:47 AM SURGICAL ASSIST): Patient is clinically euthyroid No recent labs [...] Vaccination (12+ Yrs) ORELLANA-READY TO USE 01/06/2022 Social History Tobacco Use Types Packs/Day Years Used Date Smoking Tobacco: Former Cigarettes Q uit: 2001 Smokeless Tobacco: Never Tobacco Cessation:Counseling Given: Not [...] on file Legal Sex Female 9:48 PM SURGICAL ASSIST Gender Identity Not on file Sexual Orientation Straight 10/13/2019 9: 21 PM CDT Last Filed Vital Signs Vital Sign Reading Time Taken Comments Blood Pressure 130/80 08/30/2024 3:38 PM SURGICAL ASSIST Pulse 75 04/09/2020 1:30 PM CDT Temperature 36.2 C (97.2 F) 04/09/2020 12:20 PM CDT Respiratory Rate 14 04/09/2020 1:30 PM CDT Oxygen Saturation 96% 04/09/2020 1:30 PM CDT Inhaled Oxygen Concentration - - Weight 74.5 kg (164 lb 4.8 oz) 08/30/2024 3:38 P M SURGICAL ASSIST Height 170.2 cm (5' 7) 08/29/2023 3:06 PM SURGICAL ASSIST Body Mass Index 25.73 08/29/2023 3:06 PM SURGICAL ASSIST Plan of Treatment Not on file Medical Devices Implanted Type Area Riding Double Device Identifier Shelf Expiration Date Model / Serial / Lot Mini Quickanchor(Tm) Plus (#2/0 Suture) Implanted:Qty: 1 on 04/09/2020 by Prudence Barnes MD PhD at [facility] Left: Thumb Depuy Mitek 05/25/2024 / / [id number] Description:[id number] Procedures Procedure Name Priority Date/Time Associated Diagnosis Comments PAP, REFLEX HPV Routine 08/30/2024 4:09 PM SURGICAL ASSIST Well woman exam SCREENING MAMMOGRAM BILATERAL W NACHO W IMPLANTS Schedule Routine, Read Routine (OP Routine) 06/10/2024 12:41 PM SURGICAL ASSIST Screening mammogram, encounter for EGFR Routine 02/11/2022 9:36 AM CDT HEMOGLOBIN A1C Routine 02/11/2022 9:36 AM CDT LIPID PANEL Routine 02/11/2022 9:36 AM CDT ALBUMIN CREATININE RATIO, URINE Routine 09/02/2021 4:26 PM SURGICAL ASSIST Type 2 diabetes mellitus without complication, without long-term current use of insulin (HCC) from Last 3 Months or Most Recently Relevant to Health Maintenance Results * Pap, reflex HPV (08/30/2024 4:09 PM SURGICAL ASSIST) CLINICAL INFORMATION: [facility] [place] Comment:None given LMP [facility] [place] [place] Comment:A Previous Pap [facility] [place] [place] Comment:NONE GIVEN Prev. Bx [facility] Comment:NONE GIVEN SOURCE: [facility] Comment:Cervix, Endocervix Pap, specimen adequacy [facility] Comment:SATISFACTORY FOR VICTORIANO LUATION HPV interp [facility] Comment: Cytology Results: Negative for intraepithelial lesion or malignancy. Atrophic pattern; predominantly parabasal cells COMMENTS [facility] Comment: This case could not be evaluated with computer assisted technology. The slide was manually screened according to routine procedures. Sec Reporting Consultant Iraida Mathias [facility] Comment: SXB, CT(ASCP) CT screening location: [facility], [address] [place] [address] [place] [address] Documentation Spec: CHRISTIAN CONNER MD, CLIA: [id number] Comment [facility] Comment: EXPLANATORY NOTE: The Pap is [...] clinical information. Thin prep 08/30/2024 4:09 PM SURGICAL ASSIST 09/02/2024 5:01 AM CDT Prudence Duran STUMMEL SELECTOR LAB CYTOLOGY ORDERABLES Final Re sult [facility] In [address], [facility] [place] [address] * Screening Mammogram Bilateral W Nacho W Implants (06/10/2024 12:41 PM SURGICAL ASSIST) Anatomical Region Laterality Modality Breast Bilateral Mammography Narrative 06/11/2024 12:05 PM SURGICAL ASSIST Mammogram Technique: Bilateral Digital Breast Tomosynthesis, Bilateral C-view 2D Screening mammogram. Views obtained: bilateral craniocaudal; bilateral craniocaudal implant displaced; bilateral mediolateral oblique; and bilateral mediolateral oblique implant displaced. Computer Aided Detection was performed. Mammogram Findings: The present examination has been compared to prior imaging studies performed at [facility] on 12/29/2020, 01/06/2022 and 04/10/2023. There are [...] compared to prior imaging studies performed at [facility] on 12/29/2020, 01/06/2022 and 04/10/2023. There are [...] of Race in Diagnosing Kidney Disease, JASN 2020). The CKD-EPI equation should not be used for patients with unstable renal function and has not been validated in children and those over 70. Current interpretive data was last reviewed 2021. Blood 02/11/2022 9:36 AM CDT 02/11/2022 10:38 AM CDT Angel RUBY LAB BLOOD ORDERABLES Fi nal Result Performing Organization Address [facility] de Phone Number RUPALI FRANCISCO ([place]) 1 [facility] [place] [address] * (ABNORMAL) Hemoglobin A1c (02/11/2022 9:36 AM [...] and children were not included. (Diabetes Care [id number], 2008). The eAG is not equivalent to a fasting glucose. Blood 02/11/2022 9:36 AM CDT 02/11/2022 10:38 AM CDT Angel RUBY LAB BLOOD ORDERABLES Fi nal Result Performing Organization Address [facility] Co de Phone Number RUPALI FRANCISCO ([place]) 1 [facility] [place] [address] * (ABNORMAL) Lipid panel (02/11/2022 9:36 AM [...] last revised on 2018. Chol/HDL ratio 4 [facility] ([place]) Blood 02/11/2022 9:36 AM CDT 02/11/2022 10:38 AM CDT Angel RUBY LAB BLOOD ORDERABLES Fi nal Result RUPALI FRANCISCO ([place]) 1 [facility] Department [place] [address] * Albumin Creatinine Ratio, Urine (09/02/2021 4:26 PM SURGICAL ASSIST) Albumin Ur <12.0 mg/L RUP[facility]I [facility] ([place]) Comment: Interpretive Data No reference range established. Current interpretive data was last revised 2018. Testing performed by: [address] [address] Creatinine Ur 167.5 mg/dL RUPALI FRANCISCO ([place]) Comment: Interpretive Data No reference range established. Current interpretive data was last revised 2018. Testing performed by: [address] [address] Albumin Creatinine Ratio, Ur <7 1 - 29 mg/g RUPALI FRANCISCO ([place]) Comment:Testing performed by : [facility], [address] [place]., [address] Urine 09/02/2021 4:26 PM SURGICAL ASSIST 09/03/2021 9:37 AM SURGICAL ASSIST us Patricia Eason MD LAB URINE ORDERABLES Final Res ult [facility]UP[facility] FRANCISCO ([place]) 1 [facility] Department of Laboratories [place] [phone] from Last 3 Months or Most Recently Relevant to Health Maintenance [place] [address] [place] [id number] [facility] [employer] Care Teams Senior Business Development Analyst Relationship Specialty Start Date End Date Savage Salinas DO [address] [place] [address] PCP - General Internal Medicine 10/22/24 Thais Patten MD [address] [place] [id number] 09/14/16
--- OUTSIDE RECORDS SUMMARY | 2024-12-12 14:29 | XMS_ITS | Clinical Summary ---
Author Organization [facility] Address [address] [place] [address] Care Team Providers Care Mechanic Foreman Name Role Phone Daryl Fraser MD Primary Care Provider [phone] Allergies Active Allergy Reactions Criticality Noted Date Comments Morphine Vomiting 12/10/2020 Penicillins Swelling 12/10/2020 Social History Tobacco Use Types Packs/Day Years Used Date Smoking Tobacco: Never Assessed Comments Unknown Sex and Gender Information Value Date Recorded Sex Assigned at Not on file Legal Sex Female 9:09 AM CDT Gender Identity Not on file Sexual Orientation Not on file Last Filed Vital Signs Vital Sign Reading Time Taken Comments Blood Pressure 141/91 12/10/2020 12:10 PM CDT Pulse 84 12/10/2020 12:10 PM CDT Temperature 36.6 C (97.8 F) 12/10/2020 9:16 AM CDT Respiratory Rate 14 12/10/2020 9:14 AM CDT Oxygen Saturation 100% 12/10/2020 12:10 PM CDT Inhaled Oxygen Concentration - - Weight 76.7 kg (169 lb) 12/10/2020 9:14 AM CDT Height 170.2 cm (5' 7) 12/10/2020 9:14 AM CDT Body Mass Index 26.47 12/10/2020 9:14 AM CDT Plan of Treatment Health Maintenance Due Date Last Done Comments Cervical Cancer Screening Pa p Smear (Age 30 to 64) Every 3 Years 1966 Colorectal Cancer Screening Colonoscopy (10 Years) 1966 Annual Physical 1969 Hepatitis C 01/16/1984 DTaP, Tdap and Td Vaccines ( 1 - Tdap) 1985 Hepatitis B Vaccines (1 of 3 - 19+ 3-dose series) 1985 Cervical Cancer Screening Pa p with HPV Testing (Age 30 to 64) Every 5 Years 01/16/1996 Cervical Cancer Screening with HPV 01/16/1996 Mammogram Screening 2006 Pneumococcal Vaccine: 50+ Ye ars (1 of 1 - PCV) 01/16/2016 Zoster Vaccines (1 of 2) 01/16/2016 COVID-19 Vaccine (2023-2 5 season) 2024 Meningococcal B Vaccine Aged Out No l onger eligible based on patient's age to complete this topic Meningococcal Vaccine Aged Out No romaine nicolette eligible based on patient's age to complete this topic RSV Immunizations Under 20 Months Aged Out No longer eligible based on patient's age to complete this topic Insurance Care Teams Mechanic Foreman Relationship Specialty Start Date End Date Daryl Fraser MD [address] [place] [address] PCP - General INTERNAL MEDICINE 12/10/20
--- NOTE | 2024-12-30 16:25 | WPDHOLTEREM ---
Holter/Event Monitor Holter/Event Monitor Date of procedure: 12/12/24 Holter/Event Procedure: 3-7 Day Holter Monitor Indications: Palpitations Conclusion: 1. 5 days holter monitor on 12/12/24. 2. Predominant rhythm is sinus rhythm. HR range 59-194 bpm; average 86 bpm. 3. There are rare premature supraventricular complexes, rare supraventricular couplets, and rare supraventricular triplets. There are 31 episodes of supraventricular tachycardia with fastest at 194 bpm and longest lasting 13 beats. 4. There are rare premature ventricular complexes and rare ventricular couplets, and longest ventricular trigeminy episode is 5 seconds. No ventricular tachycardia. 5. No significant pauses greater than 3 seconds. 6. Patient reports 2 episodes of symptoms of chest pain, lightheadedness, shortness of breath, irregular beats which demonstrate sinus rhythm, HR range 71-89 bpm with 1 episode with PAC's and PVC's.
== END 2024-12-12 14:15 | disposition home or self-care (01) ==
PROVIDERS: PCP Nurse Practitioner; Visit Provider Nurse Practitioner
DX: I49.1 Atrial premature depolarization (principal); I47.10 Supraventricular tachycardia, unspecified; I49.3 Ventricular premature depolarization; R00.2 Palpitations
CPT/HCPCS: 93242